=== PATIENT | female | born 1955 | race Caucasian/White ===

== ENCOUNTER 2018-03-27 14:20 | Emergency (ER) | payer SELFPAY ==
--- NOTE | 2018-03-27 14:53 | ER Report ---
History and Physical Time Seen By MD: 14:45 Hx. of Stated Complaint: 12 days ago patient took off sock on right foot and the tip of the 2nd toe(from the big toe) came off; patient states she is a type 2 diabetic; [facility] sent her for an mri today and states that the mri stated she had a bone infection and needed to come to the er HPI/ROS Chief Complaint: "infection" HPI: 62-year-old female presents to the Emergency Department today after being referred here from the [facility]. She noticed a "any" on her toe about 14 days ago. Used Neosporin and wrapped the wound but "it got worse." She went into the clinic were they placed her on oral antibiotics although she does not recall the medication name. The [facility] encouraged her to obtain a MRI for concern of osteomyelitis. The MRI results are consistent with osteomyelitis. She reports a history of type II diabetes that she manages with a long acting insulin. Reports her diabetes "may have something to do with this." Denies history of diabetic neuropathy and states she usually has full sensation of her feet. She denies having pain but has some decreased sensation of the toes at this time. Reports full range of motion of the toes, foot, and ankle. ROS: Constitutional: denies fevers, chills, and night sweats HEENT: denies headache, cough, or congestion Respiratory: denies shortness of breath CV: denies chest pain GI: denies nausea or vomiting, denies constipation or diarrhea : denies changes in urination Musculoskeletal: denies difficulty moving the ankle or toes, reports loss of sensation of to the second, third, and fourth phalanges Allergies: Coded Allergies: No Known Drug Allergies (Unverified , 03/27/18) Home Meds Active Scripts Amoxicillin/Pot Clav 875-125 Mg Tab (AUGMENTIN 875-125 TABLET) 1 Each Tablet, 1 TAB PO Q12H for 10 Days, TAB Prov:HARRIETTABBY M[facility] HE[facility] CLINICIAN 03/27/18 Reported Medications Simvastatin (SIMVASTATIN) 40 Mg Tablet, 40 MG PO HS, TAB 03/27/18 Sulfamethoxazole/Trimet 800-160 Mg Tab (BACTRIM DS TABLET) 1 Each Tablet, 1 TAB PO Q12H, TAB 03/27/18 Losartan Potassium (LOSARTAN POTASSIUM) 50 Mg Tablet, 50 MG PO QDAY 03/27/18 Amlodipine Besylate (AMLODIPINE BESYLATE) 10 Mg Tablet, 1 TAB PO QDAY, TAB 03/27/18 Insulin Detemir (LEVEMIR) 100 Unit/Ml Injs, 17 UNIT SUBQ QAM 03/27/18 Past Medical/Surgical History Diabetes, hypertension, of two children Reviewed Nurses Notes: Yes Hx Substance Use Disorder: No Hx Alcohol Use: Yes (WINE AT NIGHT "NIGHT CAP") Constitutional Vital Sign - Last 24 Hours 03/27/18 03/27/18 03/27/18 03/27/18 14:26 14:27 14:30 14:50 Temp 98.6 Pulse 96 96 Resp 18 B/P (MAP) 182/85 (117) 182/85 163/86 (111) Pulse Ox 93 91 O2 Delivery Room Air 03/27/18 03/27/18 03/27/18 03/27/18 15:00 15:20 15:30 15:50 Pulse 92 92 B/P (MAP) 153/83 (106) 150/108 (122) Pulse Ox 90 89 03/27/18 03/27/18 03/27/18 03/27/18 16:02 16:20 16:30 16:50 Pulse 87 88 B/P (MAP) 156/75 (102) 134/67 (89) Pulse Ox 93 91 03/27/18 03/27/18 03/27/18 03/27/18 17:00 17:20 17:30 17:50 Pulse 92 89 B/P (MAP) 140/71 (94) 143/75 (97) Pulse Ox 90 93 03/27/18 03/27/18 18:00 18:00 Pulse 87 B/P (MAP) 158/74 (102) 158/74 (102) Pulse Ox 93 Physical Exam Physical Examination: Differential Diagnoses: cellulites, osteomyelitis, sepsis Medical Decision Making Data Points Result Diagram: 03/27/18 1611 03/27/18 1611 Laboratory Hematology Test 03/27/18 16:00 03/27/18 16:11 Urine Color Yellow Urine Clarity Slightly-cloudy Urine pH 5.0 pH (4.8-9.5) Urine Specific [place] 1.009 Urine Protein Negative mg/dL (NEGATIVE) Urine Glucose (UA) Negative mg/dL (NEGATIVE) Urine Ketones Negative mg/dL (NEGATIVE) Urine Blood Negative (NEGATIVE) Urine Nitrite Negative (NEGATIVE) Urine Bilirubin Negative (NEGATIVE) Urine Urobilinogen Negative mg/dL (0.2-1.9) Urine Leukocyte Esterase Trace (NEGATIVE) Urine RBC <1 /HPF (0-2/HPF) Urine WBC 1 /HPF (0-5/HPF) Urine Squamous Epithelial Cells Many /LPF (</=FEW) Urine Transitional Epithelial Cells Few /LPF (NONE-FEW) Urine Bacteria Few /HPF (NONE-FEW) Urine Hyaline Casts Few /LPF (NONE-FEW) Urine Mucus None /HPF (NONE-FEW) Red Blood Count 4.71 M/uL (4.17-5.56) Mean Corpuscular Volume 93.2 fL (80.0-96.0) Mean Corpuscular Hemoglobin 32.0 pg (26.0-33.0) Mean Corpuscular Hemoglobin Concent 34.4 g/dL (32.0-36.0) Red Cell Distribution Width 12.8 % (11.5-14.5) Mean Platelet Volume 7.7 fL (7.2-11.1) Neutrophils (%) (Auto) 69.0 % (39.4-72.5) Lymphocytes (%) (Auto) 17.6 % (17.6-49.6) Monocytes (%) (Auto) 11.1 % (4.1-12.4) Eosinophils (%) (Auto) 1.6 % (0.4-6.7) Basophils (%) (Auto) 0.7 % (0.3-1.4) Nucleated RBC Relative Count (auto) 0.0 /100WBC Neutrophils # (Auto) 4.7 K/uL (2.0-7.4) Lymphocytes # (Auto) 1.2 K/uL (1.3-3.6) Monocytes # (Auto) 0.7 K/uL (0.3-1.0) Eosinophils # (Auto) 0.1 K/uL (0.0-0.5) Basophils # (Auto) 0.0 K/uL (0.0-0.1) Nucleated RBC Absolute Count (auto) 0.00 K/uL Erythrocyte Sedimentation Rate 40 mm/HOUR (0-30) Sodium Level 139 mmol/L (137-145) Potassium Level 4.1 mmol/L (3.5-5.0) Chloride Level 105 mmol/L (98-107) Carbon Dioxide Level 24 mmol/L (22-31) Blood Urea Nitrogen 15 mg/dl (7-18) Creatinine 0.80 mg/dl (0.52-1.04) Glomerular Filtration Rate Calc > 60.0 Random Glucose 164 mg/dl (75-110) Lactate 1.1 mmol/L (0.7-2.1) Calcium Level 9.5 mg/dl (8.4-10.2) Total Bilirubin 0.4 mg/dl (0.2-1.3) Aspartate Amino Transf (AST/SGOT) 24 U/L (0-35) Alanine Aminotransferase (ALT/SGPT) 25 U/L (0-56) Alkaline Phosphatase 127 U/L (0-126) C-Reactive Protein 2.1 mg/dl (<1.0) Total Protein 7.7 g/dl (6.3-8.2) Albumin 4.1 g/dl (3.5-5.0) Chemistry Test 03/27/18 16:00 03/27/18 16:11 Urine Color Yellow Urine Clarity Slightly-cloudy Urine pH 5.0 pH (4.8-9.5) Urine Specific [place] 1.009 Urine Protein Negative mg/dL (NEGATIVE) Urine Glucose (UA) Negative mg/dL (NEGATIVE) Urine Ketones Negative mg/dL (NEGATIVE) Urine Blood Negative (NEGATIVE) Urine Nitrite Negative (NEGATIVE) Urine Bilirubin Negative (NEGATIVE) Urine Urobilinogen Negative mg/dL (0.2-1.9) Urine Leukocyte Esterase Trace (NEGATIVE) Urine RBC <1 /HPF (0-2/HPF) Urine WBC 1 /HPF (0-5/HPF) Urine Squamous Epithelial Cells Many /LPF (</=FEW) Urine Transitional Epithelial Cells Few /LPF (NONE-FEW) Urine Bacteria Few /HPF (NONE-FEW) Urine Hyaline Casts Few /LPF (NONE-FEW) Urine Mucus None /HPF (NONE-FEW) White Blood Count 6.8 k/uL (4.5-11.0) Red Blood Count 4.71 M/uL (4.17-5.56) Hemoglobin 15.1 g/dL (12.0-16.0) Hematocrit 43.9 % (34.0-47.0) Mean Corpuscular Volume 93.2 fL (80.0-96.0) Mean Corpuscular Hemoglobin 32.0 pg (26.0-33.0) Mean Corpuscular Hemoglobin Concent 34.4 g/dL (32.0-36.0) Red Cell Distribution Width 12.8 % (11.5-14.5) Platelet Count 314 K/uL (150-450) Mean Platelet Volume 7.7 fL (7.2-11.1) Neutrophils (%) (Auto) 69.0 % (39.4-72.5) Lymphocytes (%) (Auto) 17.6 % (17.6-49.6) Monocytes (%) (Auto) 11.1 % (4.1-12.4) Eosinophils (%) (Auto) 1.6 % (0.4-6.7) Basophils (%) (Auto) 0.7 % (0.3-1.4) Nucleated RBC Relative Count (auto) 0.0 /100WBC Neutrophils # (Auto) 4.7 K/uL (2.0-7.4) Lymphocytes # (Auto) 1.2 K/uL (1.3-3.6) Monocytes # (Auto) 0.7 K/uL (0.3-1.0) Eosinophils # (Auto) 0.1 K/uL (0.0-0.5) Basophils # (Auto) 0.0 K/uL (0.0-0.1) Nucleated RBC Absolute Count (auto) 0.00 K/uL Erythrocyte Sedimentation Rate 40 mm/HOUR (0-30) Glomerular Filtration Rate Calc > 60.0 Lactate 1.1 mmol/L (0.7-2.1) Calcium Level 9.5 mg/dl (8.4-10.2) Total Bilirubin 0.4 mg/dl (0.2-1.3) Aspartate Amino Transf (AST/SGOT) 24 U/L (0-35) Alanine Aminotransferase (ALT/SGPT) 25 U/L (0-56) Alkaline Phosphatase 127 U/L (0-126) C-Reactive Protein 2.1 mg/dl (<1.0) Total Protein 7.7 g/dl (6.3-8.2) Albumin 4.1 g/dl (3.5-5.0) Urinalysis Test 03/27/18 16:00 Urine Color Yellow Urine Clarity Slightly-cloudy Urine pH 5.0 pH (4.8-9.5) Urine Specific [place] 1.009 Urine Protein Negative mg/dL (NEGATIVE) Urine Glucose (UA) Negative mg/dL (NEGATIVE) Urine Ketones Negative mg/dL (NEGATIVE) Urine Blood Negative (NEGATIVE) Urine Nitrite Negative (NEGATIVE) Urine Bilirubin Negative (NEGATIVE) Urine Urobilinogen Negative mg/dL (0.2-1.9) Urine Leukocyte Esterase Trace (NEGATIVE) Urine RBC <1 /HPF (0-2/HPF) Urine WBC 1 /HPF (0-5/HPF) Urine Squamous Epithelial Cells Many /LPF (</=FEW) Urine Transitional Epithelial Cells Few /LPF (NONE-FEW) Urine Bacteria Few /HPF (NONE-FEW) Urine Hyaline Casts Few /LPF (NONE-FEW) Urine Mucus None /HPF (NONE-FEW) Microbiology Microbiology Date/Time Source Procedure Growth Status 03/27/18 15:30 Foot Right Gram Stain - Final Resulted 03/27/18 15:30 Foot Right Wound Culture Pending Resulted ED Course/Re-evaluation ED Course Patient was admitted in exam room, history and physical were obtained. Differential diagnoses were considered. I examination patient has swelling and obvious wound to the right second toe. An aerobic anaerobic culture were obtained. A CBC, CMP, CRP, ESR, lactate were obtained. Patient had a lactate 1.4 , CBC showed a white count of 6800, there is no left shift. CMP was unremarkable. CRP was elevated at 2.1, ESR was normal. Patient had confirmation of osteomyelitis with MRI. After getting the labs back and discussed the case with Dr. Geller, hospitalist. We discussed admission. He did not feel with her labs falling within normal range and without her being septic, no fevers, no hypotension, that the patient could be treated as an outpatient and follow-up as outpatient. I did discuss with Dr. Vee's nurse if patient can be seen on Friday. I spoke with her she did tell me that the patient does have an appointment on Friday already at 10:30. I discussed with the patient that we will be able to discharge her home. She is to take the antibiotics as directed. She is to follow-up with Dr. howell on Friday as scheduled. She is to return to emergency room if condition worsens. If she has fevers, chills and would recommend that she come back for repeat evaluation. Patient verbalized understanding and agreement with plan. Decision to Disposition Date: Mar 27, 2018 Decision to Disposition Time: 18:11 Depart Departure Latest Vital Signs Vital Signs Date Time Temp Pulse Resp B/P (MAP) Pulse Ox O2 Delivery O2 Flow Rate FiO2 03/27/18 18:00 87 158/74 (102) 93 03/27/18 14:27 98.6 18 Room Air Impression: Primary Impression: Osteomyelitis Condition: Improved Disposition: HOME OR SELF-CARE New Scripts Amoxicillin/Pot Clav 875-125 Mg Tab (AUGMENTIN 875-125 TABLET) 1 Each Tablet 1 TAB PO Q12H for 10 Days, TAB Prov: ABBY LORENZANA 03/27/18 Patient Instructions: Osteomyelitis (ED) Additional Instructions: Ensure you attend your appointment with Dr. Vee, Friday at 10:30. Consider seeing a media services specialist. Complete entire course of antibiotics. Rest and elevate the foot. Change bandages daily and as needed to keep the wound dry and clean. Problem Qualifiers Primary Impression: Osteomyelitis Osteomyelitis type: other acute Osteomyelitis location: foot Laterality: right Qualified Codes: M86.171 - Other acute osteomyelitis, right ankle and foot ABBY LORENZANA Mar 27, 2018 14:53
[2018-03-27] MEDS ORDERED: AMLO-99 PO (15:05)
[2018-03-27] MEDS ORDERED: LEVI SUBQ (15:05)
[2018-03-27] MEDS ORDERED: SULF-198 PO (15:05)
[2018-03-27] MEDS ORDERED: SIMV-54 PO (15:05)
[2018-03-27] MEDS ORDERED: LOSA50TA72 PO (15:05)
[2018-03-27] MEDS ORDERED: GENTAMICIN/NS 80 MG/100 ML PB 100 ML IVPB ONE (15:10)
[2018-03-27] MEDS ORDERED: VANCOMYCIN 1 GM ADDVIAL 1 GM in NS(*) 0.9% 250 ML ADDVAN BAG 250 ML IVPB ONE (15:10)
[2018-03-27] MEDS ORDERED: NS(*) 0.9% 1000 ML BAG 1,000 ML IV ONE (15:10)
[2018-03-27 16:50] LABS: PLATELET COUNT, AUTOMATED 314 K/uL (150-450)
[2018-03-27 18:00] VITALS: BP 158/74
[2018-03-27] MEDS ORDERED: AMOX-559 PO (18:10)
== END 2018-03-27 18:36 | disposition home or self-care (01) ==
LOC: ER 14:35
DX: M86.171 Other acute osteomyelitis, right ankle and foot (principal)
CPT/HCPCS: 36415; 81001; 83605; 85025; 85651; 86140; 87040; 87070; 87073; 87077; 87186; 87205; 96365; 99283; J3370; J7050; 82040; 82247; 82310; 82374; 82435; 82565; 82947; 84075; 84132; 84155; 84295; 84450; 84460; 84520

== ENCOUNTER → 2018-03-27 | Outpatient (REF) ==
[~2018-03-27] MED LIST: AMLO-99 PO; AMOX-559 PO; GADOBENATE 529MG/1ML 15ML VIAL IVP ONE; LEVI SUBQ; LOSA50TA72 PO; SIMV-54 PO; SULF-198 PO
--- NOTE | 2018-03-27 12:26 | RADIOLOGY IMAGING REPORT ---
FACILITY: [facility] PATIENT NAME: Kaila Desouza : 1955 MR: [id number] V: [id number] EXAM DATE: ORDERING PHYSICIAN: AKHIL SERRA TECHNOLOGIST: Location: [facility] - [place] Patient: Kaila Desouza : 1955 Visit/Account:[id number] Date of Sevice: 03/27/2018 MRI right foot with and without contrast Indication: Second toe infection. Evaluate for osteomyelitis. Comparison: None available Technique: Sagittal and coronal STIR and T1-weighted fat saturated postcontrast, axial T1 weighted fa t saturated pre-and postcontrast, T1-weighted, and T2-weighted fat saturated images were obtained thr ough the right foot. A total of 15 mL IV MultiHance contrast was administered. Findings: Examination overall is compromised by involuntary patient motion which is present on all sequences. Given the limitations of patient motion, there is definitive osteomyelitis identified involving the r ight second toe. This involves the distal and the middle phalanges. There is extensive marrow edema t hroughout the distal phalanx and the majority of the middle phalanx. There is circumferential skin th ickening around the second toe and there are defects of the skin about the distal phalanx. Following the administration of gadolinium, there is diffuse enhancement of the skin, subcutaneous tissues and the marrow spaces of the middle and distal phalanges. No definite osteomyelitis of the proximal phala nx. No other definitive marrow abnormality of the forefoot. Osteoarthritis involves multiple joints most pronounced at the first metatarsophalangeal joint. The subcutaneous edema at the second toe extends and is continuous with the dorsal forefoot edema. No well-defined fluid collection or abscess is seen. There is muscle edema involving the intrinsic musc ulature of the foot. This may reflect denervation change in the appropriate setting. IMPRESSION: 1. Motion limited examination of the right forefoot. 2. Given these limitations, there are findings compatible with right second toe cellulitis with osteo myelitis of the middle and distal phalanges. No definitive soft tissue abscess. 3. First metatarsophalangeal joint osteoarthritis. 4. Dorsal forefoot subcutaneous edema. Report Dictated By: Shree Bryan at 03/27/2018 12:13 PM Report E-Signed By: Shree Bryan at 03/27/2018 12:23 PM WSN:[id number]
== END ==
LOC: MRI 09:40
PROVIDERS: ATTEND Nurse Practitioner
DX: M19.071 Primary osteoarthritis, right ankle and foot (principal); R22.41 Localized swelling, mass and lump, right lower limb
CPT/HCPCS: 73720; A9577

== ENCOUNTER → 2018-03-31 | Outpatient (REF) ==
[~2018-03-31] MED LIST changes: -GADOBENATE 529MG/1ML 15ML VIAL IVP ONE
--- NOTE | 2018-03-31 12:35 | EKG ---
FACILITY: [facility] PATIENT NAME: SANCHEZ BRIGHT : [id number] MR: [id number] V: [id number] EXAM DATE: ORDERING PHYSICIAN: AKHIL SERRA TECHNOLOGIST: SARAH Test Reason : PRE-OP CLEARANCE Blood Pressure : / mmHG Vent. Rate : 090 BPM Atrial Rate : 090 BPM P-R Int : 142 ms QRS Dur : 078 ms QT Int : 334 ms P-R-T Axes : 068 076 070 degrees QTc Int : 408 ms Normal sinus rhythm T inversion consistent with ant/sep ischemia vs normal variant No previous ECGs available Confirmed by KARIE GILMORE ([id number]) on 03/31/2018 7:18:18 PM Referred By: MARYSE Confirmed By:KARIE GILMORE
== END ==
LOC: RESP 12:16
PROVIDERS: ATTEND Nurse Practitioner
DX: Z01.810 Encounter for preprocedural cardiovascular examination (principal)
CPT/HCPCS: 93005

== ENCOUNTER 2018-04-02 00:23 | Day surgery (SDC) | payer SELFPAY ==
[~2018-04-02] VITALS: Ht 163.8 cm; Wt 97.1 kg
[2018-04-02 08:22] VITALS: BP 179/89
[2018-04-02] MEDS ORDERED: PROPOFOL EMUL(*) 10MG/ML 20 ML 40 ML ONE (08:46)
[2018-04-02] MEDS ORDERED: KETAMINE HCL 200 MG/20 ML MDV ONE (08:49)
[2018-04-02] MEDS ORDERED: FAMOTIDINE 20 MG TAB PO ONE (08:50)
[2018-04-02] MEDS ORDERED: MIDAZOLAM 2 MG/2 ML VIAL IVP PRN (08:50)
[2018-04-02] MEDS ORDERED: LIDOCAINE/SOD BICARB 8.4% SYR ID ONE (08:50)
[2018-04-02] MEDS ORDERED: NORMOSOL R SOLN(*) 1000 ML BAG 1,000 ML IV PRN (08:50)
[2018-04-02] MEDS ORDERED: AMPICILLIN/SULBACT (*) 3 GM VL 3 GM in NS(*) 0.9% 100 ML BAG 100 ML IVPB ONE (08:50)
[2018-04-02] MEDS ORDERED: KETOROLAC 30 MG/ML VIAL ONE (08:57)
[2018-04-02] MEDS ORDERED: ROPIVACAINE 0.5% 20 ML VIAL ONE (09:23)
[2018-04-02] MEDS ORDERED: NEOMYCIN/POLYMYX/BACITR 30 GM TP ONE (09:25)
[2018-04-02] MEDS ORDERED: LIDOCAINE MPF 1% 5 ML VIAL ONE (09:50)
[2018-04-02] MEDS ORDERED: MIDAZOLAM 2 MG/2 ML VIAL ONE (09:52)
--- NOTE | 2018-04-02 10:51 | Short(Outpt) Discharge Summary ---
Discharge Summary Reason for Hosp/Final Diag: (1) Osteomyelitis Status: Chronic Hospital Course & Plan: Right 2nd to amputation completed without problems. (2) Toe ulcer due to DM Status: Chronic Departure Discharge to: Home, Self Care Discharge Instructions Home Meds Active Scripts Amoxicillin/Pot Clav 875-125 Mg Tab (AUGMENTIN 875-125 TABLET) 1 Each Tablet, 1 TAB PO Q12H for 10 Days, TAB Prov:ABBY LORENZANA [facility] 03/27/18 Reported Medications Simvastatin (SIMVASTATIN) 40 Mg Tablet, 40 MG PO HS, TAB 03/27/18 Losartan Potassium (LOSARTAN POTASSIUM) 50 Mg Tablet, 50 MG PO QDAY 03/27/18 Amlodipine Besylate (AMLODIPINE BESYLATE) 10 Mg Tablet, 1 TAB PO QDAY, TAB 03/27/18 Insulin Detemir (LEVEMIR) 100 Unit/Ml Injs, 17 UNIT SUBQ QAM 03/27/18 Discontinued Reported Medications Sulfamethoxazole/Trimet 800-160 Mg Tab (BACTRIM DS TABLET) 1 Each Tablet, 1 TAB PO Q12H, TAB 03/27/18 Follow up Referrals: General Surgery - 04/17/18 @ Surgery, General with Javon Coy Md You have a follow up appointment scheduled with Dr. Coy on 04/17/18, at 11:45am. Diet: Regular Activity: As Tolerated Special Instructions: You may remove all the dressings on 04/04/18, then you can shower. After showering, apply antibiotic ointment to the incision and sutures and keep the site covered with a band-aid which should be changed daily after applying a new coat of antibiotic ointment. Any antibiotic ointment is acceptable, bacitracin, neosporin, triple antibiotic ointment are all fine. Keep your foot elevated as much and as often as possible until 04/06/18, then you can start walking around more. Starting on 04/10/18, you can stop applying the antibiotic ointment to the incisions/sutures and you can leave it open to air unless there is still drainage. If it is still draining then continue to cover the incision/sutures and change the band-aid daily until there's no further drainage. Problem Qualifiers (1) Osteomyelitis: Osteomyelitis type: chronic, with draining sinus Osteomyelitis location: foot Laterality: right Qualified Codes: M86.471 - Chronic osteomyelitis with draining sinus, right ankle and foot (2) Toe ulcer due to DM: Diabetes mellitus type: type 2 Laterality: right Non-pressure ulcer stage: with necrosis of bone Qualified Codes: E11.621 - Type 2 diabetes mellitus with foot ulcer; L97.514 - Non-pressure chronic ulcer of other part of right foot with necrosis of bone JAVON COY MD Apr 02, 2018 10:51
--- NOTE | 2018-04-02 10:59 | Post Operative Progress Note ---
Post Operative Progress Note Date: Apr 02, 2018 Time: 10:52 Surgeon: Nanda Dictation number: [id number] Anesthesia: TIVA by Dr. Caraballo Pre-Op Diagnosis: Right 2nd toe diabetic ulcer with osteomyelitis Post-Op Diagnosis: ANDRES Findings: None Procedure(s): Right 2nd toe amputation through proximal phalanx Specimen Removed:(May be N/A): Right 2nd toe Complications: None Fluids: See anesthesia record Estimated Blood Loss: Minimal Date OP Note Dictated: Apr 02, 2018 Time OP Note Dictated: 10:53 JAVON COY MD Apr 02, 2018 10:59
[2018-04-02 11:00] VITALS: BP 165/81
[2018-04-02 11:15] VITALS: BP 162/84
[2018-04-02 11:22] VITALS: BP 183/98
[2018-04-02 11:25] VITALS: BP 173/100
--- NOTE | 2018-04-02 14:29 | OPERATIVE REPORT 1 ---
EVENT DATE: April 02, 2018 SURGEON: Anthony Vee MD ANESTHESIOLOGIST: Marcial Caraballo MD ANESTHESIA: TIVA. PREOPERATIVE DIAGNOSIS Right second toe diabetic ulcer with underlying osteomyelitis involving the distal and middle phalangeal bones. POSTOPERATIVE DIAGNOSIS Right second toe diabetic ulcer with underlying osteomyelitis involving the distal and middle phalangeal bones. PROCEDURE PERFORMED Right second toe amputation through the proximal phalanx. COMPLICATIONS None. CONDITION Stable. BLOOD LOSS Minimal. INDICATIONS This is a 62-year-old female who was referred to my office with a toe infection with a distal tip ulcer that went down to the bone and an MRI which revealed osteomyelitis in the distal and middle phalangeal bones. She was on antibiotics , and the cellulitis was improving. She provided consent for a right toe amputation. DESCRIPTION OF PROCEDURE The patient was brought into the operating room and placed supine on the operating table. TIVA anesthesia was administered, and her right foot was prepped and draped in a sterile fashion. Timeout was completed. I marked the skin to create a plantar flap and then incised the skin with the scalpel all the way down to the bone along my skin markings. I then removed the toe through the PIP joint and then used the periosteal elevator to lift the soft tissues off from the proximal phalanx and then used the bone cutter to divide the proximal phalanx through its mid shaft. I then used a curette to clean the sharp ends of the divided bone until it was nice and blunt, and the bone was well away from the soft tissues. I then irrigated and dried the wound and made it hemostatic with electrocautery. I then closed the flexor and extensor tendons to each other with 3-0 Vicryl sutures and then closed the deep soft tissues over the cavity with interrupted 3-0 Vicryl sutures. The skin was closed with interrupted 2-0 nylon sutures. Her skin was cleaned, dried, and Bacitracin was applied to the incision and sutures, followed by sterile 4 x 4 gauze, and then her foot was wrapped in an Josh wrap. The patient tolerated the procedure without any problems and was transported to the recovery room in stable condition having tolerated everything without any problems. EFR
== END 2018-04-02 11:00 | disposition home or self-care (01) ==
LOC: OR 00:23
PROVIDERS: ATTEND Surgery
DX: E11.621 Type 2 diabetes mellitus with foot ulcer (principal); M86.9 Osteomyelitis, unspecified
CPT/HCPCS: 28124; 36416; 82948; 88305; 88311; J0295; J1885; J2001; J2250; J2704; J2795; J3490; J7050

== ENCOUNTER → 2018-05-14 | Outpatient (REF) ==
--- NOTE | 2018-05-14 14:44 | RADIOLOGY IMAGING REPORT ---
FACILITY: [facility] PATIENT NAME: Kaila Desouza : 1955 MR: [id number] V: [id number] EXAM DATE: ORDERING PHYSICIAN: AKHIL SERRA TECHNOLOGIST: Location: [facility] [place] Patient: Kaila Desouza : 1955 Visit/Account:[id number] Date of Sevice: 05/14/2018 Examination: Carotid arterial duplex sonogram. Comparisons: None. HISTORY: Left-sided bruit. FINDINGS: Duplex arterial sonography of the internal carotid arteries reveals the following: The right common c arotid artery and proximal right internal carotid artery demonstrate intimal thickening along the rig ht common carotid artery. There is calcified atherosclerotic plaque involving the proximal right int ernal carotid artery. No spectral broadening of waveforms or turbulent flow noted. The right vertebral artery is patent with antegrade flow. The left common carotid artery is within normal limits. There are findings of calcified atherosclero tic plaque involving the left carotid bulb and proximal left external carotid artery and internal car otid arteries. No spectral broadening of the waveforms or turbulent flow is noted. Regional flow velocities in centimeters per second are as follows: Right common carotid artery: 122 cm/s Right cervical internal carotid artery: 89.1 cm/s Right vertebral artery 61 cm/s Left common carotid artery: The 138 cm/s Left cervical internal carotid artery: 90.1 cm/s Left vertebral artery: 65 cm/s Right ECA: 1 74 cm/s Left ECA: 368 cm/s Right ICA to CCA ratio: 0.73 Left ICA to CCA ratio 0.65 IMPRESSION: 1. Atherosclerotic disease involving the right common carotid artery and the origins of both interna l carotid arteries without hemodynamically significant stenosis noted. 2. Elevated velocities involving the proximal aspects of both external carotid arteries somewhat gre ater on the left than right. Report Dictated By: Troy Melvin MD at 05/14/2018 2:33 PM Report E-Signed By: Troy Melvin MD at 05/14/2018 2:40 PM WSN:[email or web address]
== END ==
LOC: US 02:03
PROVIDERS: ATTEND Nurse Practitioner
DX: R09.89 Other specified symptoms and signs involving the circulatory and respiratory systems (principal)
CPT/HCPCS: 93880

== ENCOUNTER → 2019-02-18 | Outpatient (REF) ==
[~2019-02-18] MED LIST changes: +AMLO-127 PO; -AMLO-99 PO; +GADOBENATE 529MG/1ML 15ML VIAL IVP ONE; -LOSA50TA72 PO; +LOSA50TA80 PO
--- NOTE | 2019-02-18 12:22 | RADIOLOGY IMAGING REPORT ---
FACILITY: [facility] PATIENT NAME: Kaila Desouza : 1955 MR: [id number] V: [id number] EXAM DATE: ORDERING PHYSICIAN: AKHIL SERRA TECHNOLOGIST: Location: [facility] [place] Patient: Kaila Desouza : 1955 Visit/Account:[id number] Date of Sevice: 02/18/2019 MR FOOT RT W & W/O CON COMPARISON: March 27, 2018. No plain films available for comparison purposes. HISTORY: Right foot third toe ulcer at the toenail, history of diabetic ulcers on both feet, right s econd toe was surgically removed last year.. TECHNIQUE: Multiplanar MRI of the right forefoot utilizing T1 weighted and fluid sensitive sequences, with and without IV gadolinium. CONTRAST: 15 mL MultiHance intravenously FINDINGS: BONES : Severe bone marrow edema with indistinct cortex, distal phalanx of the third toe, with abnor mal marrow signal on both T1 and T2-weighted images consistent with osteomyelitis. Previous second toe amputation across the base of the proximal phalanx. Mild bone marrow edema in the first metatarsal head felt to be due to osteoarthritis of the first MTP joint. Third and fourth toe hammertoe deformities. Otherwise normal alignment for nonweightbearing study. FLUID: No appreciable effusion or drainable fluid collection. SOFT TISSUES: Mild diffuse muscle atrophy in the forefoot. Mild enhancing soft tissue edema, third t oe but no visible abscess. OTHER: Negative. IMPRESSION: 1. Findings consistent with osteomyelitis of the distal phalanx of the right third toe with adjacent soft tissue edema consistent with cellulitis. There is no drainable effusion or abscess. 2. Mild bone marrow edema in the first metatarsal head due to findings of osteoarthritis at the firs t MTP joint. 3. Diffuse muscle atrophy probably related to long-standing diabetic neuropathy.. Report Dictated By: Ronnell Humphrey at 02/18/2019 12:11 PM Report E-Signed By: Ronnell Humphrey at 02/18/2019 12:18 PM WSN:[id number]
== END ==
LOC: MRI 01:10
PROVIDERS: ATTEND Nurse Practitioner
DX: E11.621 Type 2 diabetes mellitus with foot ulcer (principal); L97.519 Non-pressure chronic ulcer of other part of right foot with unspecified severity
CPT/HCPCS: 73720; A9577

== ENCOUNTER → 2019-02-19 | Outpatient (CLI) | payer SELFPAY ==
[~2019-02-19] MED LIST changes: +ASPI81TA86 PO; -GADOBENATE 529MG/1ML 15ML VIAL IVP ONE
== END ==
LOC: RAD 16:08
PROVIDERS: ATTEND Surgery
DX: Z02.9 Encounter for administrative examinations, unspecified (principal)

== ENCOUNTER → 2019-02-22 | Outpatient (REF) ==
[~2019-02-22] MED LIST changes: -ASPI81TA86 PO
--- NOTE | 2019-02-22 18:10 | RADIOLOGY IMAGING REPORT ---
FACILITY: [facility] [place] PATIENT NAME: Kaila Desouza : 1955 MR: [id number] V: [id number] EXAM DATE: ORDERING PHYSICIAN: AKHIL SERRA TECHNOLOGIST: Location: [facility] Patient: Kaila Desouza : 1955 Visit/Account:[id number] Date of Sevice: 02/22/2019 Exam type: FOOT 3 VIEW LEFT History: Wound on left second toe Comparison: None. Findings: There appears to be a soft tissue defect along the medial aspect of the distal left second toe which may represent an ulcer. No definite bony erosion is seen. There are degenerative changes throughout the interphalangeal joints and left first MTP joint. IMPRESSION: 1. There appears to be a soft tissue defect along the medial aspect of the distal left second toe wh ich may represent an ulcer. No definite bony erosion is seen Report Dictated By: Daniella Howell MD at 02/22/2019 6:05 PM Report E-Signed By: Daniella Howell MD at 02/22/2019 6:07 PM WSN:[email or web address]
== END ==
LOC: RAD 15:47
PROVIDERS: ATTEND Nurse Practitioner
DX: S91.105A Unspecified open wound of left lesser toe(s) without damage to nail, initial encounter (principal)

== ENCOUNTER → 2019-03-02 | Outpatient (CLI) | payer SELFPAY ==
[~2019-03-02] MED LIST changes: +ASPI81TA86 PO
--- NOTE | 2019-03-02 16:34 | EKG ---
FACILITY: [facility] - [place], [place] PATIENT NAME: SANCHEZ BRIGHT : [id number] MR: [id number] V: [id number] EXAM DATE: ORDERING PHYSICIAN: MELISSA GIANG TECHNOLOGIST: Test Reason : ekg Blood Pressure : / mmHG Vent. Rate : 088 BPM Atrial Rate : 088 BPM P-R Int : 148 ms QRS Dur : 094 ms QT Int : 360 ms P-R-T Axes : 072 070 056 degrees QTc Int : 435 ms Normal sinus rhythm Normal ECG When compared with ECG of 31-MAR-2018 12:19, Nonspecific T wave abnormality no longer evident in Anterior leads Referred By: Confirmed By:
== END ==
LOC: RESP 15:53
PROVIDERS: ATTEND Surgery
DX: Z02.9 Encounter for administrative examinations, unspecified (principal)
CPT/HCPCS: 93005

== ENCOUNTER 2019-03-09 01:30 | Day surgery (SDC) | payer SELFPAY ==
[~2019-03-09] VITALS: Ht 167.6 cm; Wt 94.8 kg
[2019-03-09] MEDS ORDERED: MIDAZOLAM 2 MG/2 ML VIAL IVP PRN (06:30)
[2019-03-09] MEDS ORDERED: NORMOSOL R SOLN(*) 1000 ML BAG 1,000 ML IV PRN (06:30)
[2019-03-09] MEDS ORDERED: ceFAZolin(*) 2GM/D5W 50ML 50 ML IVPB ONE (06:30)
[2019-03-09] MEDS ORDERED: FAMOTIDINE 20 MG TAB PO ONE (06:30)
[2019-03-09] MEDS ORDERED: LIDOCAINE/SOD BICARB 8.4% SYR ID ONE (06:30)
[2019-03-09 06:33] VITALS: BP 169/82
[2019-03-09] MEDS ORDERED: NEOMYCIN/POLYMYX/BACITR 30 GM TP ONE (06:59)
[2019-03-09] MEDS ORDERED: BUPIVACAINE/EPI 0.5% 50ML VIAL INFIL ONE (06:59)
[2019-03-09] MEDS ORDERED: ONDANSETRON 4 MG/2 ML VIAL ONE ×2 (07:07→07:24)
[2019-03-09] MEDS ORDERED: PROPOFOL EMUL(*) 10MG/ML 20 ML 0 ML ONE (07:07)
[2019-03-09] MEDS ORDERED: DEXAMETHASONE SOD 4 MG/ML VIAL ONE ×2 (07:07→07:24)
[2019-03-09] MEDS ORDERED: LIDOCAINE MPF 1% 5 ML VIAL ONE ×2 (07:07→07:24)
[2019-03-09] MEDS ORDERED: KETAMINE HCL 200 MG/20 ML MDV ONE (07:08)
[2019-03-09] MEDS ORDERED: fentaNYL CITR 100 MCG/2 ML AMP ONE (07:08)
[2019-03-09] MEDS ORDERED: fentaNYL CITR 250 MCG/5 ML AMP ONE (07:24)
[2019-03-09] MEDS ORDERED: SUGAMMADEX SOD 200 MG/2 ML SDV ONE (07:24)
[2019-03-09] MEDS ORDERED: PROPOFOL EMUL(*) 10MG/ML 20 ML 20 ML ONE (07:24)
[2019-03-09] MEDS ORDERED: ROCURONIUM BR 10 MG/ML ONE (07:24)
[2019-03-09] MEDS ORDERED: BUPIVACAINE 0.5% INJ 50ML VIAL INFIL ONE (07:26)
[2019-03-09] MEDS ORDERED: KETAMINE HCL-NS 50 MG/5 ML SYR ONE (07:28)
[2019-03-09] MEDS ORDERED: TRAM-420 PO (08:41)
--- NOTE | 2019-03-09 08:43 | Short(Outpt) Discharge Summary ---
Discharge Summary Reason for Hosp/Final Diag: (1) Osteomyelitis Status: Resolved Hospital Course & Plan: pt presented for toe amp. she tolerated the procedure well. she will be discharged home when criteria met. Departure Discharge to: Home Discharge Instructions Home Meds Active Scripts Tramadol Hcl (TRAMADOL HCL) 50 Mg Tablet, 50 MG PO Q6H PRN for PAIN, #14 TAB Prov:MELISSA MEEK 03/09/19 Reported Medications Aspirin (ASPIRIN EC) 81 Mg Tablet.dr, 81 MG PO QDAY, #2 TAB 03/02/19 Simvastatin (SIMVASTATIN) 40 Mg Tablet, 40 MG PO HS, TAB 03/27/18 Losartan Potassium (LOSARTAN POTASSIUM) 50 Mg Tablet, 100 MG PO BID 03/27/18 Amlodipine Besylate (AMLODIPINE BESYLATE) 10 Mg Tablet, 1 TAB PO QDAY, TAB 03/27/18 Insulin Detemir (LEVEMIR) 100 Unit/Ml Injs, 23 UNIT SUBQ QAM 03/27/18 Discontinued Scripts Amoxicillin/Pot Clav 875-125 Mg Tab (AUGMENTIN 875-125 TABLET) 1 Each Tablet, 1 TAB PO Q12H for 10 Days, TAB Prov:ABBY LORENZANA ADMINISTRATIVE RECEPTIONIST 03/27/18 Diet: Regular Activity: With Walker Special Instructions: off load right forefoot as instructed. ok to remove bandage and shower in 2 days. then change bandage daily to protect toe. take stool softener while taking pain meds. f/u dr. abilio meek 2 wks ([phone]). MELISSA MEEK Mar 09, 2019 08:43
--- NOTE | 2019-03-09 08:47 | Post Operative Progress Note ---
Post Operative Progress Note Date: Mar 09, 2019 Time: 08:42 Surgeon: dr. abilio meek #[id number] Application Chemist: none Anesthesia: gen, local dr. kirkland Pre-Op Diagnosis: osteo right 3rd toe Post-Op Diagnosis: same Procedure(s): right 3rd toe amp Specimen Removed:(May be N/A): right 3rd toe Complications: none Estimated Blood Loss: minimal Date OP Note Dictated: Mar 09, 2019 Time OP Note Dictated: 08:43 MELISSA MEEK Mar 09, 2019 08:47
[2019-03-09 09:10] VITALS: BP 165/81
[2019-03-09 09:30] VITALS: BP 165/81
[2019-03-09 09:45] VITALS: BP 171/88
[2019-03-09 09:48] VITALS: BP 161/85
--- NOTE | 2019-03-09 09:51 | OPERATIVE REPORT 1 ---
EVENT DATE: March 09, 2019 SURGEON: Rhys Soriano MD ANESTHESIOLOGIST: Braydon Almazan MD ANESTHESIA: General with local. SERVICE WRITER ADVISOR: None. PREOPERATIVE DIAGNOSIS Osteomyelitis of right third toe. POSTOPERATIVE DIAGNOSIS Osteomyelitis of right third toe. PROCEDURE PERFORMED Right third toe amputation. IV FLUIDS Crystalloid. ESTIMATED BLOOD LOSS Minimal. SPECIMENS Right third toe. COMPLICATIONS None. INDICATIONS This is a 63-year-old diabetic female with a right third toe wound at the distal aspect of her toe. Imaging revealed osteomyelitis. Risk and benefits of the procedure explained and consent was signed. DESCRIPTION OF PROCEDURE The patient was taken to the operating room and placed in the supine position. General anesthesia was administered by the Anesthesia team. The patient was prepped and draped in the normal sterile fashion. A fish-mouth incision was made just beyond where the bone was to be transected. This was taken down sharply through the soft tissue to the bone. A periosteal elevator was used to free any surrounding tissue from the bone. A power saw was then used to divide in a slight bevel the shaft of the proximal phalanx. Tendons were put on stretch and divided sharply. The bone was filed. Appropriate hemostasis was assured. There was a small amount of extra skin and this was removed sharply. Again, appropriate hemostasis was assured. The wound was closed with 3-0 Vicryl interrupted stitches. Appropriate dressings were applied. The patient tolerated the procedure well. There were no complications. MTDD
== END 2019-03-09 09:10 | disposition home or self-care (01) ==
LOC: OR 01:30
PROVIDERS: ATTEND Surgery
DX: M86.9 Osteomyelitis, unspecified (principal)
CPT/HCPCS: 28160; 36416; 82948; 88305; 97116; J1100; J2001; J2405; J2704; J3010; J3490; J0690